=== PATIENT | female | born 1955 ===

== ENCOUNTER 2020-07-17 10:45 | Inpatient (IN) | payer OTHER ==
[~2020-07-17] VITALS: Ht 157.5 cm; Wt 97.1 kg
[2020-07-17] MEDS ORDERED: COZAAR100 MG PO (14:48)
== END 2020-07-25 17:40 | disposition home or self-care (01) | DRG 741 ==
LOC: O/R 07-24 06:57 → OB/GYN 07-24 06:57 → SURH 07-24 10:45 → OB/GYN 07-24 21:00
PROVIDERS: ADMIT Obstetrics & Gynecology Gynecologic Oncology; ATTEND Obstetrics & Gynecology Gynecologic Oncology
PROC: 0UB74ZZ Excision of Bilateral Fallopian Tubes, Percutaneous Endoscopic Approach (ICD-10-PCS; 2020-07-24)
PROC: 0UT24ZZ Resection of Bilateral Ovaries, Percutaneous Endoscopic Approach (ICD-10-PCS; 2020-07-24)
PROC: 07BC4ZX Excision of Pelvis Lymphatic, Percutaneous Endoscopic Approach, Diagnostic (ICD-10-PCS; 2020-07-24)
PROC: 0UT94ZZ Resection of Uterus, Percutaneous Endoscopic Approach (ICD-10-PCS; principal; 2020-07-24 14:00)
DX: C54.1 Malignant neoplasm of endometrium (principal)